=== PATIENT | male | born 1960 | race Caucasian/White ===

== ENCOUNTER 2020-08-23 11:37 | Inpatient (IN) | payer MEDICAID, OTHER ==
[~2020-08-23] VITALS: Ht 177.8 cm; Wt 89.4 kg
[~2020-08-23 11:37] MED LIST: DOCU-275 PO; OMEP20 PO; RISP3TAB63 PO; TRIH2TAB3 PO
[2020-08-23] MEDS ORDERED: LORazepam 2 MG/ML VIAL IM ONE (12:45)
[2020-08-23] MEDS ORDERED: DiphenhydrAMINE HCL 50 MG/ML VIAL IM ONE (12:45)
[2020-08-23] MEDS ORDERED: HALOPERIDOL LACTATE 5 MG/ML VIAL IM ONE (12:45)
[2020-08-23 16:16] LABS: COVID AG,FIA SOURCE NASOPHARYNGEAL
[2020-08-23 16:47] LABS: BASOPHILS % (AUTO) 0.8 % (0.0-2.0); EOSINOPHILS % (AUTO) 1.3 % (1.0-6.0); HEMATOCRIT 43.8 % (41-53); HEMOGLOBIN 14.9 g/dL (13.5-17.5); LYMPHOCYTES # (AUTO) 2.3 K/uL (1.0-4.8); LYMPHOCYTES % (AUTO) 23.2 % (22.0-44.0); MEAN CORPUSCULAR HEMOGLOBIN 35.1 pg (26.0-34.0); MEAN CORPUSCULAR HGB CONC 34.1 G/dL (31.0-37.0); MEAN CORPUSCULAR VOLUME 103 fL (80-100); MONOCYTES % (AUTO) 10.2 % (2.0-9.0); NEUTROPHILS # (AUTO) 6.5 K/uL (1.8-7.7); NEUTROPHILS % (AUTO) 64.5 % (40.0-70.0); PLATELET COUNT (AUTO) 319 K/uL (150-450); RED BLOOD CELL COUNT(AUTO) 4.25 MIL/uL (4.50-5.90); RED CELL DISTRIBUTION WIDTH 13.4 % (11.5-14.5)
[2020-08-23 17:06] LABS: ALANINE AMINOTRANSFERASE 27 U/L (12-78); ALBUMIN 4.5 g/dL (3.4-5.0); ALKALINE PHOSPHATASE 160 U/L (46-116); ANION GAP 12 mmol/L (8-16); ASPARTATE AMINOTRANSFERASE 31 U/L (15-37); BILIRUBIN,TOTAL 0.6 mg/dL (0.1-1.0); CALCIUM, TOTAL 10.1 mg/dL (8.8-10.5); CARBON DIOXIDE 28 mmol/L (22-29); CHLORIDE 102 mmol/L (98-107); CREATININE 1.38 mg/dL (0.60-1.30); GLOMERULAR FILTR. RATE CALC 53 mL/min (>60); GLUCOSE,RANDOM 90 mg/dL (70-110); POTASSIUM 4.4 mmol/L (3.5-5.1); SODIUM SERUM 142 mmol/L (136-145); TOTAL PROTEIN, SERUM 8.5 g/dL (6.4-8.2); UREA NITROGEN, BLOOD 27 mg/dL (7-18)
[2020-08-23] MEDS: OLANZapine 5 MG TABLET PO SCH (20:47)
[2020-08-23] MEDS: HALOPERIDOL LACTATE 5 MG/ML VIAL IM ONE ×2 (22:05→23:12)
[2020-08-23] MEDS: LORazepam 2 MG/ML VIAL IM ONE ×2 (22:06→23:10)
[2020-08-23] MEDS: DiphenhydrAMINE HCL 50 MG/ML VIAL IM ONE ×2 (22:06→23:10)
[2020-08-24 01:47] VITALS: BP 109/68
[2020-08-24] MEDS ORDERED: NICOTINE 14 MG/24 HOUR PATCH TD PRN (07:15)
[2020-08-24] MEDS ORDERED: MAGNESIUM HYDROXIDE SUSPENSION 30 ML UDCUP PO PRN (07:15)
[2020-08-24] MEDS ORDERED: ALBUTEROL SULFATE HFA 90 MCG/PUFF 8 GM INHALER IH PRN (07:15)
[2020-08-24] MEDS ORDERED: DOCUSATE SODIUM 100 MG CAPSULE PO PRN (07:15)
[2020-08-24] MEDS ORDERED: MAG HYDROX/AL HYDROX/SIMETH ES 30 ML SUSPENSION UDCUP PO PRN (07:15)
[2020-08-24] MEDS ORDERED: ACETAMINOPHEN 325 MG TABLET PO PRN (07:15)
[2020-08-24] MEDS ORDERED: ONDANSETRON HCL 4 MG TABLET PO PRN (07:15)
[2020-08-24] MEDS ORDERED: CloNIDine HCL 0.1 MG TABLET PO PRN (07:15)
[2020-08-24] MEDS ORDERED: PETROLATUM,WHITE 28 GM JELLY TP PRN (07:15)
[2020-08-24] MEDS ORDERED: GuaiFENesin/D-METHORPHAN [SUGAR-FREE] 200-20MG/10 ML SYRUP UDCUP PO PRN (07:15)
[2020-08-24] MEDS ORDERED: IBUPROFEN 400 MG TABLET PO PRN (07:15)
[2020-08-24] MEDS ORDERED: LOPERAMIDE HCL 2 MG CAPSULE PO PRN (07:15)
[2020-08-24] MEDS: OMEPRAZOLE 20 MG CAPSULE PO SCH (09:00)
[2020-08-24] MEDS: OLANZapine 5 MG TABLET PO SCH (09:00)
[2020-08-24 10:12] VITALS: BP 101/60
[2020-08-24] MEDS: OLANZapine 5 MG RAPDIS TABLET PO SCH ×2 (11:30→16:47)
[2020-08-24 16:18] VITALS: BP 131/79
[2020-08-24] MEDS: ZOLPIDEM TARTRATE 10 MG TABLET PO PRN (22:23)
[2020-08-25 08:45] VITALS: BP 122/63
[2020-08-25] MEDS: OMEPRAZOLE 20 MG CAPSULE PO SCH (09:49)
[2020-08-25] MEDS: OLANZapine 5 MG RAPDIS TABLET PO SCH (09:49)
[2020-08-25] MEDS: LORazepam 2 MG TABLET PO PRN ×2 (09:50→17:27)
[2020-08-25] MEDS: HALOPERIDOL 5 MG TABLET PO PRN (10:51)
[2020-08-25] MEDS ORDERED: OLANZapine 5 MG RAPDIS TABLET PO ONE (11:15)
[2020-08-25 16:19] VITALS: BP 130/79
[2020-08-25] MEDS: OLANZapine 10 MG RAPDIS TABLET PO SCH (17:27)
[2020-08-26] MEDS: LORazepam 2 MG TABLET PO PRN ×2 (01:19→08:46)
[2020-08-26] MEDS: ZOLPIDEM TARTRATE 10 MG TABLET PO PRN (01:19)
[2020-08-26] MEDS: OMEPRAZOLE 20 MG CAPSULE PO SCH (08:46)
[2020-08-26] MEDS: OLANZapine 10 MG RAPDIS TABLET PO SCH ×2 (08:46→17:00)
[2020-08-26 09:13] VITALS: BP 100/73
[2020-08-26] MEDS: MULTIVITAMINS WITH MINERALS, THERAPEUTIC TABLET PO SCH ×2 (11:30→12:49)
[2020-08-26] MEDS ORDERED: ChlordiazePOXIDE HCL 25 MG CAPSULE PO PRN (11:30)
[2020-08-26] MEDS: THIAMINE 100 MG TABLET PO SCH ×2 (11:30→12:49)
[2020-08-26] MEDS: FOLIC ACID 1 MG TABLET PO SCH ×2 (11:30→12:49)
[2020-08-26 11:32] VITALS: BP 116/66
[2020-08-26 13:00] VITALS: BP 94/58
[2020-08-26 15:00] VITALS: BP 116/66
[2020-08-27 06:09] VITALS: BP 113/61
[2020-08-27] MEDS ORDERED: ChlordiazePOXIDE HCL 25 MG CAPSULE PO PRN (07:00)
[2020-08-27 08:51] LABS: CHOL/HDL RATIO 5.3 (4.2-7.3)
[2020-08-27] MEDS: ChlordiazePOXIDE HCL 25 MG CAPSULE PO SCH ×4 (09:42→20:12)
[2020-08-27] MEDS: FOLIC ACID 1 MG TABLET PO SCH ×2 (09:42→16:45)
[2020-08-27] MEDS: OMEPRAZOLE 20 MG CAPSULE PO SCH (09:42)
[2020-08-27] MEDS: THIAMINE 100 MG TABLET PO SCH ×2 (09:42→16:45)
[2020-08-27] MEDS: MULTIVITAMINS WITH MINERALS, THERAPEUTIC TABLET PO SCH (09:43)
[2020-08-27] MEDS: OLANZapine 10 MG RAPDIS TABLET PO SCH ×2 (09:43→16:45)
[2020-08-27] MEDS: HALOPERIDOL 5 MG TABLET PO PRN (16:45)
[2020-08-27 17:16] VITALS: BP 125/72
[2020-08-27] MEDS: LORazepam 2 MG TABLET PO PRN (20:12)
[2020-08-28 06:48] VITALS: BP 115/69
[2020-08-28] MEDS: MULTIVITAMINS WITH MINERALS, THERAPEUTIC TABLET PO SCH (08:47)
[2020-08-28] MEDS: OLANZapine 10 MG RAPDIS TABLET PO SCH ×2 (08:47→16:27)
[2020-08-28] MEDS: ChlordiazePOXIDE HCL 25 MG CAPSULE PO SCH ×4 (08:47→20:25)
[2020-08-28] MEDS: FOLIC ACID 1 MG TABLET PO SCH ×2 (08:47→16:27)
[2020-08-28] MEDS: THIAMINE 100 MG TABLET PO SCH ×2 (08:47→16:27)
[2020-08-28] MEDS: OMEPRAZOLE 20 MG CAPSULE PO SCH (08:47)
[2020-08-28] MEDS: LORazepam 2 MG TABLET PO PRN (08:47)
[2020-08-28 16:23] VITALS: BP 123/60
[2020-08-28] MEDS: HALOPERIDOL 5 MG TABLET PO PRN (16:27)
[2020-08-28] MEDS: ZOLPIDEM TARTRATE 10 MG TABLET PO PRN (20:25)
[2020-08-29 03:49] VITALS: BP 139/79
[2020-08-29] MEDS: LORazepam 2 MG TABLET PO PRN (03:55)
[2020-08-29] MEDS: HALOPERIDOL 5 MG TABLET PO PRN (03:55)
[2020-08-29 05:12] VITALS: BP 139/79
[2020-08-29] MEDS ORDERED: ChlordiazePOXIDE HCL 10 MG CAPSULE PO PRN (07:00)
[2020-08-29] MEDS: MULTIVITAMINS WITH MINERALS, THERAPEUTIC TABLET PO SCH (08:13)
[2020-08-29] MEDS: OMEPRAZOLE 20 MG CAPSULE PO SCH (08:13)
[2020-08-29] MEDS: THIAMINE 100 MG TABLET PO SCH ×2 (08:13→17:07)
[2020-08-29] MEDS: OLANZapine 10 MG RAPDIS TABLET PO SCH ×2 (08:13→17:07)
[2020-08-29] MEDS: FOLIC ACID 1 MG TABLET PO SCH ×2 (08:14→17:07)
[2020-08-29] MEDS: ChlordiazePOXIDE HCL 10 MG CAPSULE PO SCH ×4 (08:25→21:29)
[2020-08-29 11:00] VITALS: BP 108/68
[2020-08-29 17:41] VITALS: BP 108/64
[2020-08-29 18:52] VITALS: BP 108/64
[2020-08-30] VITALS (8 sets, daily range): BP systolic 108–128; BP diastolic 68–73
[2020-08-30] MEDS: ZOLPIDEM TARTRATE 10 MG TABLET PO PRN (01:20)
[2020-08-30] MEDS ORDERED: ChlordiazePOXIDE HCL 10 MG CAPSULE PO PRN (07:00)
[2020-08-30] MEDS: OLANZapine 10 MG RAPDIS TABLET PO SCH ×2 (08:37→16:29)
[2020-08-30] MEDS: MULTIVITAMINS WITH MINERALS, THERAPEUTIC TABLET PO SCH (08:37)
[2020-08-30] MEDS: THIAMINE 100 MG TABLET PO SCH ×2 (08:37→16:29)
[2020-08-30] MEDS: OMEPRAZOLE 20 MG CAPSULE PO SCH (08:37)
[2020-08-30] MEDS: FOLIC ACID 1 MG TABLET PO SCH ×2 (08:37→16:29)
[2020-08-31 06:45] VITALS: BP 122/71
[2020-08-31] MEDS: MULTIVITAMINS WITH MINERALS, THERAPEUTIC TABLET PO SCH (08:35)
[2020-08-31] MEDS: FOLIC ACID 1 MG TABLET PO SCH ×2 (08:36→16:05)
[2020-08-31] MEDS: OLANZapine 10 MG RAPDIS TABLET PO SCH ×2 (08:36→16:05)
[2020-08-31] MEDS: OMEPRAZOLE 20 MG CAPSULE PO SCH (08:36)
[2020-08-31] MEDS: THIAMINE 100 MG TABLET PO SCH ×2 (08:36→16:05)
[2020-08-31] MEDS: LORazepam 2 MG TABLET PO PRN (16:06)
[2020-09-01 08:05] VITALS: BP 118/58
[2020-09-01] MEDS: FOLIC ACID 1 MG TABLET PO SCH ×2 (08:45→16:52)
[2020-09-01] MEDS: THIAMINE 100 MG TABLET PO SCH ×2 (08:46→16:52)
[2020-09-01] MEDS: MULTIVITAMINS WITH MINERALS, THERAPEUTIC TABLET PO SCH (08:46)
[2020-09-01] MEDS: OMEPRAZOLE 20 MG CAPSULE PO SCH (08:46)
[2020-09-01] MEDS: OLANZapine 10 MG RAPDIS TABLET PO SCH ×2 (08:47→16:53)
[2020-09-01 13:30] VITALS: BP 98/65
[2020-09-01 16:04] VITALS: BP 127/88
[2020-09-01 16:05] VITALS: BP 127/88
[2020-09-01] MEDS: LORazepam 2 MG TABLET PO PRN (17:03)
[2020-09-01] MEDS: HALOPERIDOL 5 MG TABLET PO PRN (17:03)
[2020-09-01] MEDS: ZOLPIDEM TARTRATE 10 MG TABLET PO PRN (20:33)
[2020-09-02 06:24] VITALS: BP 110/63
[2020-09-02 08:50] VITALS: BP 133/65
[2020-09-02] MEDS: OLANZapine 10 MG RAPDIS TABLET PO SCH ×2 (08:53→16:49)
[2020-09-02] MEDS: OMEPRAZOLE 20 MG CAPSULE PO SCH (08:53)
[2020-09-02] MEDS: FOLIC ACID 1 MG TABLET PO SCH ×2 (08:53→16:49)
[2020-09-02] MEDS: THIAMINE 100 MG TABLET PO SCH ×2 (08:53→16:49)
[2020-09-02] MEDS: MULTIVITAMINS WITH MINERALS, THERAPEUTIC TABLET PO SCH (09:00)
[2020-09-02 16:37] VITALS: BP 126/62
[2020-09-02] MEDS: LORazepam 2 MG TABLET PO PRN (16:49)
[2020-09-02] MEDS: ZOLPIDEM TARTRATE 10 MG TABLET PO PRN (22:14)
[2020-09-03 06:11] VITALS: BP 132/64
[2020-09-03 08:28] VITALS: BP 130/71
[2020-09-03] MEDS: OLANZapine 10 MG RAPDIS TABLET PO SCH ×2 (09:09→16:24)
[2020-09-03] MEDS: MULTIVITAMINS WITH MINERALS, THERAPEUTIC TABLET PO SCH (09:09)
[2020-09-03] MEDS: FOLIC ACID 1 MG TABLET PO SCH ×2 (09:09→16:23)
[2020-09-03] MEDS: THIAMINE 100 MG TABLET PO SCH ×2 (09:09→16:24)
[2020-09-03] MEDS: OMEPRAZOLE 20 MG CAPSULE PO SCH (09:09)
[2020-09-03 16:13] VITALS: BP 119/76
[2020-09-03] MEDS: ZOLPIDEM TARTRATE 10 MG TABLET PO PRN (22:03)
[2020-09-04] MEDS: MULTIVITAMINS WITH MINERALS, THERAPEUTIC TABLET PO SCH (08:15)
[2020-09-04] MEDS: FOLIC ACID 1 MG TABLET PO SCH ×2 (08:15→16:49)
[2020-09-04] MEDS: THIAMINE 100 MG TABLET PO SCH ×2 (08:15→16:49)
[2020-09-04] MEDS: OLANZapine 10 MG RAPDIS TABLET PO SCH ×2 (08:16→16:49)
[2020-09-04] MEDS: OMEPRAZOLE 20 MG CAPSULE PO SCH (08:16)
[2020-09-04 16:15] VITALS: BP 130/91
[2020-09-04] MEDS: HALOPERIDOL 5 MG TABLET PO PRN (16:49)
[2020-09-04] MEDS: LORazepam 2 MG TABLET PO PRN (16:49)
[2020-09-04] MEDS: ZOLPIDEM TARTRATE 10 MG TABLET PO PRN (20:54)
[2020-09-05 06:35] VITALS: BP 110/64
[2020-09-05 08:20] VITALS: BP 102/61
[2020-09-05] MEDS: THIAMINE 100 MG TABLET PO SCH ×2 (09:48→16:33)
[2020-09-05] MEDS: FOLIC ACID 1 MG TABLET PO SCH ×2 (09:48→16:32)
[2020-09-05] MEDS: OLANZapine 10 MG RAPDIS TABLET PO SCH ×2 (09:48→16:33)
[2020-09-05] MEDS: OMEPRAZOLE 20 MG CAPSULE PO SCH (09:48)
[2020-09-05] MEDS: MULTIVITAMINS WITH MINERALS, THERAPEUTIC TABLET PO SCH (09:48)
[2020-09-05 17:25] VITALS: BP 112/69
[2020-09-05] MEDS: LORazepam 2 MG TABLET PO PRN (17:36)
[2020-09-05] MEDS: HALOPERIDOL 5 MG TABLET PO PRN (19:10)
[2020-09-05] MEDS: ZOLPIDEM TARTRATE 10 MG TABLET PO PRN (21:15)
[2020-09-06 06:06] VITALS: BP 114/67
[2020-09-06 08:20] VITALS: BP 132/90
[2020-09-06] MEDS: OMEPRAZOLE 20 MG CAPSULE PO SCH (08:48)
[2020-09-06] MEDS: OLANZapine 10 MG RAPDIS TABLET PO SCH ×2 (08:48→18:00)
[2020-09-06] MEDS: FOLIC ACID 1 MG TABLET PO SCH ×2 (08:48→18:00)
[2020-09-06] MEDS: THIAMINE 100 MG TABLET PO SCH ×2 (08:49→18:00)
[2020-09-06] MEDS: MULTIVITAMINS WITH MINERALS, THERAPEUTIC TABLET PO SCH (08:49)
[2020-09-06 16:03] VITALS: BP 104/48
[2020-09-07 05:12] VITALS: BP 118/64
[2020-09-07 08:36] VITALS: BP 106/64
[2020-09-07] MEDS: THIAMINE 100 MG TABLET PO SCH ×2 (08:50→17:22)
[2020-09-07] MEDS: OLANZapine 10 MG RAPDIS TABLET PO SCH ×2 (08:50→17:25)
[2020-09-07] MEDS: OMEPRAZOLE 20 MG CAPSULE PO SCH (08:50)
[2020-09-07] MEDS: MULTIVITAMINS WITH MINERALS, THERAPEUTIC TABLET PO SCH (08:50)
[2020-09-07] MEDS: FOLIC ACID 1 MG TABLET PO SCH ×2 (08:51→17:23)
[2020-09-07] MEDS: LORazepam 2 MG TABLET PO PRN ×3 (08:51→22:32)
[2020-09-07 16:11] VITALS: BP_SYST 134; BP_DIAS 93; BP_DIAS 99
[2020-09-07] MEDS: HALOPERIDOL 5 MG TABLET PO PRN (22:32)
[2020-09-08 06:28] VITALS: BP 128/78
[2020-09-08 08:27] VITALS: BP 108/62
[2020-09-08] MEDS: FOLIC ACID 1 MG TABLET PO SCH ×2 (09:12→16:20)
[2020-09-08] MEDS: MULTIVITAMINS WITH MINERALS, THERAPEUTIC TABLET PO SCH (09:12)
[2020-09-08] MEDS: OLANZapine 10 MG RAPDIS TABLET PO SCH ×2 (09:12→16:20)
[2020-09-08] MEDS: OMEPRAZOLE 20 MG CAPSULE PO SCH (09:12)
[2020-09-08] MEDS: THIAMINE 100 MG TABLET PO SCH ×2 (09:12→16:20)
[2020-09-08 16:04] VITALS: BP 129/88
[2020-09-08] MEDS: LORazepam 2 MG TABLET PO PRN (16:23)
[2020-09-08] MEDS: ZOLPIDEM TARTRATE 10 MG TABLET PO PRN (22:12)
[2020-09-09 04:43] VITALS: BP 126/78
[2020-09-09] MEDS: THIAMINE 100 MG TABLET PO SCH ×2 (08:33→17:20)
[2020-09-09] MEDS: FOLIC ACID 1 MG TABLET PO SCH ×2 (08:33→17:20)
[2020-09-09] MEDS: OLANZapine 10 MG RAPDIS TABLET PO SCH ×2 (08:33→17:20)
[2020-09-09] MEDS: MULTIVITAMINS WITH MINERALS, THERAPEUTIC TABLET PO SCH (08:33)
[2020-09-09] MEDS: OMEPRAZOLE 20 MG CAPSULE PO SCH (08:33)
[2020-09-09 08:45] VITALS: BP 128/71
[2020-09-09] MEDS: GABAPENTIN 100 MG CAPSULE PO SCH ×2 (10:09→17:20)
[2020-09-09] MEDS: LORazepam 2 MG TABLET PO PRN ×2 (13:41→20:36)
[2020-09-09 13:45] VITALS: BP 138/89
[2020-09-09 16:28] VITALS: BP 112/72
[2020-09-09] MEDS: HALOPERIDOL 5 MG TABLET PO PRN (17:20)
[2020-09-10 05:31] VITALS: BP 125/64
[2020-09-10 07:57] VITALS: BP 139/89
[2020-09-10] MEDS: FOLIC ACID 1 MG TABLET PO SCH ×2 (08:18→16:16)
[2020-09-10] MEDS: OMEPRAZOLE 20 MG CAPSULE PO SCH (08:18)
[2020-09-10] MEDS: GABAPENTIN 100 MG CAPSULE PO SCH ×2 (08:18→16:16)
[2020-09-10] MEDS: HALOPERIDOL 5 MG TABLET PO PRN (08:18)
[2020-09-10] MEDS: THIAMINE 100 MG TABLET PO SCH ×2 (08:18→16:16)
[2020-09-10] MEDS: MULTIVITAMINS WITH MINERALS, THERAPEUTIC TABLET PO SCH (08:18)
[2020-09-10] MEDS: OLANZapine 10 MG RAPDIS TABLET PO SCH ×2 (08:18→16:16)
[2020-09-10] MEDS: LORazepam 2 MG TABLET PO PRN (13:29)
[2020-09-10 16:10] VITALS: BP 121/53
[2020-09-11 03:23] VITALS: BP 152/98
[2020-09-11] MEDS: LORazepam 2 MG TABLET PO PRN ×3 (03:37→18:01)
[2020-09-11 08:43] LABS: EOSINOPHILS % (AUTO) 3.7 % (1.0-6.0); HEMATOCRIT 37.5 % (41-53); HEMOGLOBIN 12.7 g/dL (13.5-17.5); LYMPHOCYTES # (AUTO) 1.9 K/uL (1.0-4.8); LYMPHOCYTES % (AUTO) 27.4 % (22.0-44.0); MEAN CORPUSCULAR HEMOGLOBIN 34.9 pg (26.0-34.0); MEAN CORPUSCULAR HGB CONC 33.9 G/dL (31.0-37.0); MEAN CORPUSCULAR VOLUME 103 fL (80-100); MONOCYTES # (AUTO) 0.7 K/uL (0.1-1.0); NEUTROPHILS # (AUTO) 3.9 K/uL (1.8-7.7); NEUTROPHILS % (AUTO) 56.9 % (40.0-70.0); PLATELET COUNT (AUTO) 348 K/uL (150-450); RED BLOOD CELL COUNT(AUTO) 3.64 MIL/uL (4.50-5.90); RED CELL DISTRIBUTION WIDTH 13.3 % (11.5-14.5)
[2020-09-11] MEDS: FOLIC ACID 1 MG TABLET PO SCH ×2 (08:55→18:01)
[2020-09-11] MEDS: OLANZapine 10 MG RAPDIS TABLET PO SCH ×2 (08:55→18:01)
[2020-09-11] MEDS: MULTIVITAMINS WITH MINERALS, THERAPEUTIC TABLET PO SCH (08:55)
[2020-09-11] MEDS: THIAMINE 100 MG TABLET PO SCH ×2 (08:55→18:01)
[2020-09-11] MEDS: OMEPRAZOLE 20 MG CAPSULE PO SCH (08:55)
[2020-09-11] MEDS: GABAPENTIN 100 MG CAPSULE PO SCH ×2 (08:55→18:01)
[2020-09-11 09:18] LABS: ALANINE AMINOTRANSFERASE 38 U/L (12-78); ALBUMIN 3.4 g/dL (3.4-5.0); ALKALINE PHOSPHATASE 129 U/L (46-116); ANION GAP 8 mmol/L (8-16); ASPARTATE AMINOTRANSFERASE 32 U/L (15-37); BILIRUBIN,TOTAL 0.4 mg/dL (0.1-1.0); CALCIUM, TOTAL 8.9 mg/dL (8.8-10.5); CARBON DIOXIDE 28 mmol/L (22-29); CHLORIDE 108 mmol/L (98-107); CREATININE 0.92 mg/dL (0.60-1.30); GLOMERULAR FILTR. RATE CALC > 60 mL/min (>60); GLUCOSE,RANDOM 89 mg/dL (70-110); SODIUM SERUM 144 mmol/L (136-145); TOTAL PROTEIN, SERUM 6.8 g/dL (6.4-8.2); UREA NITROGEN, BLOOD 29 mg/dL (7-18)
[2020-09-11 16:08] VITALS: BP 109/79
[2020-09-11 20:15] VITALS: BP 152/81
[2020-09-11] MEDS: HALOPERIDOL 5 MG TABLET PO PRN (20:57)
[2020-09-12] MEDS: HALOPERIDOL 5 MG TABLET PO PRN ×3 (09:12→20:09)
[2020-09-12] MEDS: GABAPENTIN 100 MG CAPSULE PO SCH ×2 (09:12→16:08)
[2020-09-12] MEDS: LORazepam 2 MG TABLET PO PRN (09:13)
[2020-09-12] MEDS: FOLIC ACID 1 MG TABLET PO SCH ×2 (09:13→16:08)
[2020-09-12] MEDS: OLANZapine 10 MG RAPDIS TABLET PO SCH ×2 (09:14→16:08)
[2020-09-12] MEDS: OMEPRAZOLE 20 MG CAPSULE PO SCH (09:14)
[2020-09-12] MEDS: MULTIVITAMINS WITH MINERALS, THERAPEUTIC TABLET PO SCH (09:15)
[2020-09-12] MEDS: THIAMINE 100 MG TABLET PO SCH ×2 (09:15→16:08)
[2020-09-12 14:59] LABS: APPEARANCE,URINE CLEAR (CLEAR); BILIRUBIN,URINE NEGATIVE (NEGATIVE); GLUCOSE, URINE (UA) NEGATIVE (NEGATIVE); KETONES,URINE NEGATIVE (NEGATIVE); LEUKOCYTE ESTERASE ,URINE NEGATIVE (NEGATIVE); NITRATE,URINE NEGATIVE (NEGATIVE); OCCULT BLOOD,URINE NEGATIVE (NEGATIVE); PROTEIN,URINE NEGATIVE (NEGATIVE); UROBILINOGEN,URINE 0.2 mg/dL (<=1.0)
[2020-09-12 15:00] LABS: BACTERIA,URINE None Seen /HPF (None Seen); RBC,URINE None Seen /HPF (0-2); WBC,URINE None Seen /HPF (0-5)
[2020-09-12 16:23] VITALS: BP 149/73
[2020-09-13] MEDS: HALOPERIDOL 5 MG TABLET PO PRN ×4 (01:47→17:40)
[2020-09-13] MEDS: LORazepam 2 MG TABLET PO PRN ×2 (01:47→09:36)
[2020-09-13 02:04] VITALS: BP 152/77
[2020-09-13] MEDS: MULTIVITAMINS WITH MINERALS, THERAPEUTIC TABLET PO SCH (09:36)
[2020-09-13] MEDS: THIAMINE 100 MG TABLET PO SCH ×2 (09:36→16:32)
[2020-09-13] MEDS: GABAPENTIN 100 MG CAPSULE PO SCH ×2 (09:36→16:32)
[2020-09-13] MEDS: OLANZapine 10 MG RAPDIS TABLET PO SCH ×2 (09:36→16:32)
[2020-09-13] MEDS: FOLIC ACID 1 MG TABLET PO SCH ×2 (09:36→16:32)
[2020-09-13] MEDS: OMEPRAZOLE 20 MG CAPSULE PO SCH (09:36)
[2020-09-13 16:01] VITALS: BP 128/67
[2020-09-14 08:19] VITALS: BP 127/67
[2020-09-14] MEDS: LORazepam 2 MG TABLET PO PRN (09:06)
[2020-09-14] MEDS: GABAPENTIN 100 MG CAPSULE PO SCH ×2 (09:06→16:29)
[2020-09-14] MEDS: THIAMINE 100 MG TABLET PO SCH ×2 (09:06→16:29)
[2020-09-14] MEDS: OLANZapine 10 MG RAPDIS TABLET PO SCH ×2 (09:06→16:29)
[2020-09-14] MEDS: OMEPRAZOLE 20 MG CAPSULE PO SCH (09:06)
[2020-09-14] MEDS: FOLIC ACID 1 MG TABLET PO SCH ×2 (09:06→16:29)
[2020-09-14] MEDS: MULTIVITAMINS WITH MINERALS, THERAPEUTIC TABLET PO SCH (09:06)
[2020-09-14 12:51] LABS: COVID AG,FIA SOURCE NASOPHARYNGEAL
[2020-09-14 16:01] VITALS: BP 129/87
[2020-09-15 08:00] VITALS: BP 122/77
[2020-09-15] MEDS: GABAPENTIN 100 MG CAPSULE PO SCH ×2 (08:05→16:30)
[2020-09-15] MEDS: MULTIVITAMINS WITH MINERALS, THERAPEUTIC TABLET PO SCH (08:05)
[2020-09-15] MEDS: THIAMINE 100 MG TABLET PO SCH ×2 (08:05→16:31)
[2020-09-15] MEDS: OMEPRAZOLE 20 MG CAPSULE PO SCH (08:05)
[2020-09-15] MEDS: OLANZapine 10 MG RAPDIS TABLET PO SCH ×2 (08:05→16:31)
[2020-09-15] MEDS: LORazepam 2 MG TABLET PO PRN (08:05)
[2020-09-15] MEDS: FOLIC ACID 1 MG TABLET PO SCH ×2 (08:05→16:31)
[2020-09-15 16:13] VITALS: BP 124/81
[2020-09-15] MEDS: ZOLPIDEM TARTRATE 10 MG TABLET PO PRN (21:00)
[2020-09-16] MEDS: THIAMINE 100 MG TABLET PO SCH ×2 (07:56→16:23)
[2020-09-16] MEDS: OMEPRAZOLE 20 MG CAPSULE PO SCH (07:56)
[2020-09-16] MEDS: FOLIC ACID 1 MG TABLET PO SCH ×2 (07:56→16:24)
[2020-09-16] MEDS: MULTIVITAMINS WITH MINERALS, THERAPEUTIC TABLET PO SCH (07:57)
[2020-09-16] MEDS: HALOPERIDOL 5 MG TABLET PO PRN ×2 (07:57→18:36)
[2020-09-16] MEDS: GABAPENTIN 100 MG CAPSULE PO SCH ×2 (07:57→16:24)
[2020-09-16] MEDS: OLANZapine 10 MG RAPDIS TABLET PO SCH ×2 (07:57→16:24)
[2020-09-16 08:07] VITALS: BP 131/77
[2020-09-16 16:24] VITALS: BP 138/83
[2020-09-17 08:07] VITALS: BP 151/95
[2020-09-17] MEDS: THIAMINE 100 MG TABLET PO SCH ×2 (10:12→16:44)
[2020-09-17] MEDS: GABAPENTIN 100 MG CAPSULE PO SCH ×2 (10:12→16:44)
[2020-09-17] MEDS: FOLIC ACID 1 MG TABLET PO SCH ×2 (10:12→16:43)
[2020-09-17] MEDS: HALOPERIDOL 5 MG TABLET PO PRN ×2 (10:12→16:44)
[2020-09-17] MEDS: OLANZapine 10 MG RAPDIS TABLET PO SCH ×2 (10:12→16:44)
[2020-09-17] MEDS: OMEPRAZOLE 20 MG CAPSULE PO SCH (10:12)
[2020-09-17] MEDS: MULTIVITAMINS WITH MINERALS, THERAPEUTIC TABLET PO SCH (10:12)
[2020-09-17] MEDS: FERROUS SULFATE 325 MG EC TABLET PO SCH (16:44)
[2020-09-17 17:59] VITALS: BP 148/80
[2020-09-18] MEDS: FERROUS SULFATE 325 MG EC TABLET PO SCH ×2 (06:55→16:10)
[2020-09-18 09:13] VITALS: BP 153/96
[2020-09-18] MEDS: THIAMINE 100 MG TABLET PO SCH ×2 (09:32→16:03)
[2020-09-18] MEDS: HALOPERIDOL 5 MG TABLET PO PRN ×2 (09:33→16:04)
[2020-09-18] MEDS: MULTIVITAMINS WITH MINERALS, THERAPEUTIC TABLET PO SCH (09:33)
[2020-09-18] MEDS: OMEPRAZOLE 20 MG CAPSULE PO SCH (09:33)
[2020-09-18] MEDS: GABAPENTIN 100 MG CAPSULE PO SCH ×2 (09:33→16:03)
[2020-09-18] MEDS: FOLIC ACID 1 MG TABLET PO SCH ×2 (09:33→16:03)
[2020-09-18] MEDS: OLANZapine 10 MG RAPDIS TABLET PO SCH ×2 (09:33→16:04)
[2020-09-18 16:19] VITALS: BP 100/74
[2020-09-19] MEDS: FERROUS SULFATE 325 MG EC TABLET PO SCH ×2 (06:54→18:41)
[2020-09-19] MEDS: MULTIVITAMINS WITH MINERALS, THERAPEUTIC TABLET PO SCH (08:09)
[2020-09-19] MEDS: GABAPENTIN 100 MG CAPSULE PO SCH ×2 (08:09→16:05)
[2020-09-19] MEDS: THIAMINE 100 MG TABLET PO SCH ×2 (08:09→16:06)
[2020-09-19] MEDS: HALOPERIDOL 5 MG TABLET PO PRN ×3 (08:09→20:12)
[2020-09-19] MEDS: OMEPRAZOLE 20 MG CAPSULE PO SCH (08:09)
[2020-09-19] MEDS: OLANZapine 10 MG RAPDIS TABLET PO SCH ×2 (08:09→16:06)
[2020-09-19] MEDS: FOLIC ACID 1 MG TABLET PO SCH ×2 (08:09→16:05)
[2020-09-19 16:37] VITALS: BP 141/110
[2020-09-20] MEDS: FERROUS SULFATE 325 MG EC TABLET PO SCH ×2 (06:59→16:47)
[2020-09-20 08:27] VITALS: BP 153/72
[2020-09-20] MEDS: THIAMINE 100 MG TABLET PO SCH ×2 (08:56→16:47)
[2020-09-20] MEDS: MULTIVITAMINS WITH MINERALS, THERAPEUTIC TABLET PO SCH (08:56)
[2020-09-20] MEDS: OLANZapine 10 MG RAPDIS TABLET PO SCH ×2 (08:56→16:48)
[2020-09-20] MEDS: FOLIC ACID 1 MG TABLET PO SCH ×2 (08:57→16:48)
[2020-09-20] MEDS: OMEPRAZOLE 20 MG CAPSULE PO SCH (08:57)
[2020-09-20] MEDS: HALOPERIDOL 5 MG TABLET PO PRN ×2 (08:57→16:47)
[2020-09-20] MEDS: GABAPENTIN 100 MG CAPSULE PO SCH ×2 (08:57→16:47)
[2020-09-21 00:15] VITALS: BP 156/100
[2020-09-21] MEDS: LORazepam 2 MG TABLET PO PRN (00:18)
[2020-09-21] MEDS: ZOLPIDEM TARTRATE 10 MG TABLET PO PRN ×2 (00:18→20:58)
[2020-09-21] MEDS: FERROUS SULFATE 325 MG EC TABLET PO SCH ×2 (06:59→17:45)
[2020-09-21 08:03] VITALS: BP 116/84
[2020-09-21] MEDS: MULTIVITAMINS WITH MINERALS, THERAPEUTIC TABLET PO SCH (08:51)
[2020-09-21] MEDS: FOLIC ACID 1 MG TABLET PO SCH ×2 (08:51→17:46)
[2020-09-21] MEDS: HALOPERIDOL 5 MG TABLET PO PRN ×3 (08:51→20:16)
[2020-09-21] MEDS: GABAPENTIN 100 MG CAPSULE PO SCH ×2 (08:51→17:46)
[2020-09-21] MEDS: OLANZapine 10 MG RAPDIS TABLET PO SCH ×2 (08:51→17:45)
[2020-09-21] MEDS: THIAMINE 100 MG TABLET PO SCH ×2 (08:51→17:46)
[2020-09-21] MEDS: OMEPRAZOLE 20 MG CAPSULE PO SCH (08:51)
[2020-09-21 13:43] LABS: COVID AG,FIA SOURCE NASOPHARYNGEAL
[2020-09-21 16:06] VITALS: BP 124/76
[2020-09-22] MEDS: FERROUS SULFATE 325 MG EC TABLET PO SCH ×2 (06:25→17:44)
[2020-09-22] MEDS: GABAPENTIN 100 MG CAPSULE PO SCH ×2 (08:57→16:16)
[2020-09-22] MEDS: HALOPERIDOL 5 MG TABLET PO PRN ×3 (08:57→19:45)
[2020-09-22] MEDS: MULTIVITAMINS WITH MINERALS, THERAPEUTIC TABLET PO SCH (08:57)
[2020-09-22] MEDS: FOLIC ACID 1 MG TABLET PO SCH ×2 (08:57→16:16)
[2020-09-22] MEDS: THIAMINE 100 MG TABLET PO SCH ×2 (08:57→16:16)
[2020-09-22] MEDS: OMEPRAZOLE 20 MG CAPSULE PO SCH (08:57)
[2020-09-22] MEDS: OLANZapine 10 MG RAPDIS TABLET PO SCH ×2 (08:57→16:16)
[2020-09-22 16:08] VITALS: BP 131/79
[2020-09-22] MEDS: ZOLPIDEM TARTRATE 10 MG TABLET PO PRN (21:36)
[2020-09-23] MEDS: FERROUS SULFATE 325 MG EC TABLET PO SCH ×2 (06:39→15:50)
[2020-09-23] MEDS: OMEPRAZOLE 20 MG CAPSULE PO SCH (08:05)
[2020-09-23] MEDS: OLANZapine 10 MG RAPDIS TABLET PO SCH ×2 (08:05→15:48)
[2020-09-23] MEDS: MULTIVITAMINS WITH MINERALS, THERAPEUTIC TABLET PO SCH (08:05)
[2020-09-23] MEDS: GABAPENTIN 100 MG CAPSULE PO SCH ×2 (08:05→15:48)
[2020-09-23] MEDS: THIAMINE 100 MG TABLET PO SCH ×2 (08:05→15:48)
[2020-09-23] MEDS: FOLIC ACID 1 MG TABLET PO SCH ×2 (08:05→15:48)
[2020-09-23 08:48] VITALS: BP 146/96
[2020-09-23] MEDS: HALOPERIDOL 5 MG TABLET PO PRN (15:48)
[2020-09-23 16:07] VITALS: BP 131/81
[2020-09-23] MEDS: BACITRACIN 28 GM OINTMENT TP SCH (16:07)
[2020-09-24] MEDS: FERROUS SULFATE 325 MG EC TABLET PO SCH ×2 (06:56→16:00)
[2020-09-24] MEDS: GABAPENTIN 100 MG CAPSULE PO SCH ×2 (09:03→16:00)
[2020-09-24] MEDS: HALOPERIDOL 5 MG TABLET PO PRN ×2 (09:03→15:57)
[2020-09-24] MEDS: OMEPRAZOLE 20 MG CAPSULE PO SCH (09:04)
[2020-09-24] MEDS: FOLIC ACID 1 MG TABLET PO SCH ×2 (09:04→16:00)
[2020-09-24] MEDS: OLANZapine 10 MG RAPDIS TABLET PO SCH ×2 (09:04→16:00)
[2020-09-24] MEDS: THIAMINE 100 MG TABLET PO SCH ×2 (09:04→16:01)
[2020-09-24] MEDS: MULTIVITAMINS WITH MINERALS, THERAPEUTIC TABLET PO SCH (09:05)
[2020-09-24] MEDS: BACITRACIN 28 GM OINTMENT TP SCH ×2 (09:05→16:01)
[2020-09-24 10:15] VITALS: BP 129/76
[2020-09-24] MEDS: ZOLPIDEM TARTRATE 10 MG TABLET PO PRN (21:17)
[2020-09-25 04:12] VITALS: BP 120/59
[2020-09-25] MEDS: FERROUS SULFATE 325 MG EC TABLET PO SCH ×2 (06:28→17:01)
[2020-09-25] MEDS: GABAPENTIN 100 MG CAPSULE PO SCH ×2 (07:42→16:24)
[2020-09-25] MEDS: BACITRACIN 28 GM OINTMENT TP SCH ×2 (07:42→16:24)
[2020-09-25] MEDS: OMEPRAZOLE 20 MG CAPSULE PO SCH (07:42)
[2020-09-25] MEDS: MULTIVITAMINS WITH MINERALS, THERAPEUTIC TABLET PO SCH (07:42)
[2020-09-25] MEDS: OLANZapine 10 MG RAPDIS TABLET PO SCH ×2 (07:42→16:24)
[2020-09-25] MEDS: THIAMINE 100 MG TABLET PO SCH ×2 (07:42→16:24)
[2020-09-25] MEDS: HALOPERIDOL 5 MG TABLET PO PRN ×2 (07:42→21:19)
[2020-09-25] MEDS: FOLIC ACID 1 MG TABLET PO SCH ×2 (07:42→16:24)
[2020-09-25 16:16] VITALS: BP 138/103
[2020-09-26] MEDS: LORazepam 2 MG TABLET PO PRN (04:22)
[2020-09-26] MEDS: HALOPERIDOL 5 MG TABLET PO PRN ×3 (04:22→20:21)
[2020-09-26] MEDS: FERROUS SULFATE 325 MG EC TABLET PO SCH ×2 (07:00→17:07)
[2020-09-26 09:58] VITALS: BP 121/65
[2020-09-26] MEDS: MULTIVITAMINS WITH MINERALS, THERAPEUTIC TABLET PO SCH (10:06)
[2020-09-26] MEDS: OMEPRAZOLE 20 MG CAPSULE PO SCH (10:06)
[2020-09-26] MEDS: OLANZapine 10 MG RAPDIS TABLET PO SCH ×2 (10:06→16:13)
[2020-09-26] MEDS: THIAMINE 100 MG TABLET PO SCH ×2 (10:06→16:13)
[2020-09-26] MEDS: GABAPENTIN 100 MG CAPSULE PO SCH ×2 (10:06→16:13)
[2020-09-26] MEDS: FOLIC ACID 1 MG TABLET PO SCH ×2 (10:06→16:13)
[2020-09-26] MEDS: BACITRACIN 28 GM OINTMENT TP SCH ×2 (10:07→17:06)
[2020-09-26 10:35] LABS: BASOPHILS % (AUTO) 0.8 % (0.0-2.0); EOSINOPHILS % (AUTO) 2.9 % (1.0-6.0); HEMOGLOBIN 13.9 g/dL (13.5-17.5); LYMPHOCYTES # (AUTO) 1.9 K/uL (1.0-4.8); LYMPHOCYTES % (AUTO) 22.3 % (22.0-44.0); MEAN CORPUSCULAR HGB CONC 33.9 G/dL (31.0-37.0); MEAN CORPUSCULAR VOLUME 103 fL (80-100); MONOCYTES # (AUTO) 0.8 K/uL (0.1-1.0); MONOCYTES % (AUTO) 9.6 % (2.0-9.0); NEUTROPHILS # (AUTO) 5.6 K/uL (1.8-7.7); NEUTROPHILS % (AUTO) 64.4 % (40.0-70.0); PLATELET COUNT (AUTO) 327 K/uL (150-450); RED BLOOD CELL COUNT(AUTO) 3.97 MIL/uL (4.50-5.90); RED CELL DISTRIBUTION WIDTH 13.9 % (11.5-14.5)
[2020-09-26 10:48] LABS: ANION GAP 7 mmol/L (8-16); CALCIUM, TOTAL 9.2 mg/dL (8.8-10.5); CARBON DIOXIDE 30 mmol/L (22-29); CHLORIDE 106 mmol/L (98-107); CREATININE 0.91 mg/dL (0.60-1.30); GLOMERULAR FILTR. RATE CALC > 60 mL/min (>60); GLUCOSE,RANDOM 98 mg/dL (70-110); POTASSIUM 4.5 mmol/L (3.5-5.1); SODIUM SERUM 143 mmol/L (136-145); UREA NITROGEN, BLOOD 22 mg/dL (7-18)
[2020-09-26 16:06] VITALS: BP 121/82
[2020-09-27] MEDS: LORazepam 2 MG TABLET PO PRN (00:45)
[2020-09-27] MEDS: ZOLPIDEM TARTRATE 10 MG TABLET PO PRN (00:45)
[2020-09-27] MEDS: FERROUS SULFATE 325 MG EC TABLET PO SCH ×2 (07:14→17:07)
[2020-09-27] MEDS: GABAPENTIN 100 MG CAPSULE PO SCH ×2 (08:21→17:06)
[2020-09-27] MEDS: OMEPRAZOLE 20 MG CAPSULE PO SCH (08:21)
[2020-09-27] MEDS: MULTIVITAMINS WITH MINERALS, THERAPEUTIC TABLET PO SCH (08:21)
[2020-09-27] MEDS: OLANZapine 10 MG RAPDIS TABLET PO SCH ×2 (08:21→17:07)
[2020-09-27] MEDS: FOLIC ACID 1 MG TABLET PO SCH ×2 (08:21→17:06)
[2020-09-27] MEDS: HALOPERIDOL 5 MG TABLET PO PRN (08:21)
[2020-09-27] MEDS: THIAMINE 100 MG TABLET PO SCH ×2 (08:21→17:07)
[2020-09-27 08:25] VITALS: BP 147/85
[2020-09-27] MEDS: BACITRACIN 28 GM OINTMENT TP SCH ×2 (08:28→17:47)
[2020-09-27 16:14] VITALS: BP 132/74
[2020-09-27 20:05] VITALS: BP 127/81
[2020-09-28] MEDS: LORazepam 2 MG TABLET PO PRN ×2 (04:49→09:44)
[2020-09-28] MEDS: HALOPERIDOL 5 MG TABLET PO PRN ×2 (04:49→09:44)
[2020-09-28] MEDS: FERROUS SULFATE 325 MG EC TABLET PO SCH ×2 (07:10→16:16)
[2020-09-28 08:02] VITALS: BP 138/82
[2020-09-28] MEDS: THIAMINE 100 MG TABLET PO SCH ×2 (09:42→16:16)
[2020-09-28] MEDS: FOLIC ACID 1 MG TABLET PO SCH ×2 (09:42→16:17)
[2020-09-28] MEDS: OMEPRAZOLE 20 MG CAPSULE PO SCH (09:42)
[2020-09-28] MEDS: MULTIVITAMINS WITH MINERALS, THERAPEUTIC TABLET PO SCH (09:42)
[2020-09-28] MEDS: OLANZapine 10 MG RAPDIS TABLET PO SCH ×2 (09:42→16:16)
[2020-09-28] MEDS: GABAPENTIN 100 MG CAPSULE PO SCH ×2 (09:42→16:16)
[2020-09-28] MEDS: BACITRACIN 28 GM OINTMENT TP SCH ×2 (10:00→16:22)
[2020-09-28 12:49] LABS: COVID AG,FIA SOURCE NASOPHARYNGEAL
[2020-09-28 16:22] VITALS: BP 105/80
[2020-09-28] MEDS: ZOLPIDEM TARTRATE 10 MG TABLET PO PRN (22:51)
[2020-09-29] MEDS: FERROUS SULFATE 325 MG EC TABLET PO SCH ×2 (06:48→16:33)
[2020-09-29 08:16] VITALS: BP 143/90
[2020-09-29] MEDS: MULTIVITAMINS WITH MINERALS, THERAPEUTIC TABLET PO SCH (08:21)
[2020-09-29] MEDS: THIAMINE 100 MG TABLET PO SCH ×2 (08:21→16:33)
[2020-09-29] MEDS: OLANZapine 10 MG RAPDIS TABLET PO SCH ×2 (08:21→16:33)
[2020-09-29] MEDS: OMEPRAZOLE 20 MG CAPSULE PO SCH (08:21)
[2020-09-29] MEDS: FOLIC ACID 1 MG TABLET PO SCH ×2 (08:21→16:33)
[2020-09-29] MEDS: GABAPENTIN 100 MG CAPSULE PO SCH ×2 (08:21→16:33)
[2020-09-29] MEDS: LORazepam 2 MG TABLET PO PRN ×2 (08:21→17:20)
[2020-09-29] MEDS: HALOPERIDOL 5 MG TABLET PO PRN ×2 (08:21→17:20)
[2020-09-29] MEDS: BACITRACIN 28 GM OINTMENT TP SCH ×2 (09:00→16:33)
[2020-09-29 16:24] VITALS: BP 148/74
[2020-09-29 17:42] LABS: APPEARANCE,URINE CLEAR (CLEAR); BILIRUBIN,URINE NEGATIVE (NEGATIVE); GLUCOSE, URINE (UA) NEGATIVE (NEGATIVE); KETONES,URINE NEGATIVE (NEGATIVE); LEUKOCYTE ESTERASE ,URINE NEGATIVE (NEGATIVE); NITRATE,URINE NEGATIVE (NEGATIVE); OCCULT BLOOD,URINE NEGATIVE (NEGATIVE); PROTEIN,URINE NEGATIVE (NEGATIVE); UROBILINOGEN,URINE 0.2 mg/dL (<=1.0)
[2020-09-29] MEDS: ZOLPIDEM TARTRATE 10 MG TABLET PO PRN (20:40)
[2020-09-30] MEDS: FERROUS SULFATE 325 MG EC TABLET PO SCH ×2 (06:44→17:42)
[2020-09-30] MEDS: LORazepam 2 MG TABLET PO PRN (08:17)
[2020-09-30] MEDS: OLANZapine 10 MG RAPDIS TABLET PO SCH ×2 (08:17→16:21)
[2020-09-30] MEDS: THIAMINE 100 MG TABLET PO SCH ×2 (08:17→16:21)
[2020-09-30] MEDS: GABAPENTIN 100 MG CAPSULE PO SCH ×2 (08:17→16:21)
[2020-09-30] MEDS: HALOPERIDOL 5 MG TABLET PO PRN (08:17)
[2020-09-30] MEDS: OMEPRAZOLE 20 MG CAPSULE PO SCH (08:17)
[2020-09-30] MEDS: MULTIVITAMINS WITH MINERALS, THERAPEUTIC TABLET PO SCH (08:17)
[2020-09-30] MEDS: FOLIC ACID 1 MG TABLET PO SCH ×2 (08:17→16:21)
[2020-09-30] MEDS: BACITRACIN 28 GM OINTMENT TP SCH ×2 (08:22→16:22)
[2020-09-30 08:30] VITALS: BP 152/90
[2020-09-30 16:04] VITALS: BP 150/105
[2020-10-01] MEDS: FERROUS SULFATE 325 MG EC TABLET PO SCH ×2 (06:23→16:33)
[2020-10-01] MEDS: OLANZapine 5 MG RAPDIS TABLET PO SCH ×2 (08:29→16:23)
[2020-10-01] MEDS: HALOPERIDOL 5 MG TABLET PO PRN ×2 (08:29→19:17)
[2020-10-01] MEDS: FOLIC ACID 1 MG TABLET PO SCH ×2 (08:29→16:23)
[2020-10-01] MEDS: THIAMINE 100 MG TABLET PO SCH ×2 (08:29→16:23)
[2020-10-01] MEDS: OMEPRAZOLE 20 MG CAPSULE PO SCH (08:29)
[2020-10-01] MEDS: GABAPENTIN 100 MG CAPSULE PO SCH ×2 (08:29→16:23)
[2020-10-01] MEDS: MULTIVITAMINS WITH MINERALS, THERAPEUTIC TABLET PO SCH (08:29)
[2020-10-01] MEDS: LORazepam 2 MG TABLET PO PRN ×2 (08:29→19:17)
[2020-10-01 08:45] VITALS: BP 153/91
[2020-10-01] MEDS: BACITRACIN 28 GM OINTMENT TP SCH ×2 (09:00→16:23)
[2020-10-01 16:26] VITALS: BP 146/85
[2020-10-02] MEDS: FERROUS SULFATE 325 MG EC TABLET PO SCH ×2 (06:55→16:35)
[2020-10-02 08:24] VITALS: BP 150/80
[2020-10-02] MEDS: MULTIVITAMINS WITH MINERALS, THERAPEUTIC TABLET PO SCH (08:31)
[2020-10-02] MEDS: GABAPENTIN 100 MG CAPSULE PO SCH ×2 (08:31→16:25)
[2020-10-02] MEDS: FOLIC ACID 1 MG TABLET PO SCH ×2 (08:31→16:25)
[2020-10-02] MEDS: OLANZapine 5 MG RAPDIS TABLET PO SCH ×2 (08:32→16:27)
[2020-10-02] MEDS: OMEPRAZOLE 20 MG CAPSULE PO SCH (08:32)
[2020-10-02] MEDS: THIAMINE 100 MG TABLET PO SCH ×2 (08:32→16:25)
[2020-10-02] MEDS: HALOPERIDOL 5 MG TABLET PO PRN (11:48)
[2020-10-02] MEDS: LORazepam 2 MG TABLET PO PRN (11:53)
[2020-10-02] MEDS: BACITRACIN 28 GM OINTMENT TP SCH ×2 (13:36→16:35)
[2020-10-02 16:05] VITALS: BP 132/86
[2020-10-03] MEDS: FERROUS SULFATE 325 MG EC TABLET PO SCH ×2 (06:32→17:02)
[2020-10-03] MEDS: FOLIC ACID 1 MG TABLET PO SCH ×2 (08:32→17:02)
[2020-10-03] MEDS: HALOPERIDOL 5 MG TABLET PO PRN (08:32)
[2020-10-03] MEDS: THIAMINE 100 MG TABLET PO SCH ×2 (08:32→17:02)
[2020-10-03] MEDS: LORazepam 2 MG TABLET PO PRN (08:32)
[2020-10-03] MEDS: OMEPRAZOLE 20 MG CAPSULE PO SCH (08:32)
[2020-10-03] MEDS: MULTIVITAMINS WITH MINERALS, THERAPEUTIC TABLET PO SCH (08:32)
[2020-10-03] MEDS: GABAPENTIN 100 MG CAPSULE PO SCH ×2 (08:32→17:02)
[2020-10-03] MEDS: OLANZapine 5 MG RAPDIS TABLET PO SCH ×2 (08:32→17:02)
[2020-10-03] MEDS: BACITRACIN 28 GM OINTMENT TP SCH ×2 (12:18→17:01)
[2020-10-03 16:57] VITALS: BP 136/82
[2020-10-04 08:00] VITALS: BP 140/86
[2020-10-04] MEDS: THIAMINE 100 MG TABLET PO SCH ×2 (08:32→17:04)
[2020-10-04] MEDS: OMEPRAZOLE 20 MG CAPSULE PO SCH (08:32)
[2020-10-04] MEDS: GABAPENTIN 100 MG CAPSULE PO SCH ×2 (08:32→17:04)
[2020-10-04] MEDS: FERROUS SULFATE 325 MG EC TABLET PO SCH ×2 (08:32→17:04)
[2020-10-04] MEDS: FOLIC ACID 1 MG TABLET PO SCH ×2 (08:32→17:04)
[2020-10-04] MEDS: MULTIVITAMINS WITH MINERALS, THERAPEUTIC TABLET PO SCH (08:32)
[2020-10-04] MEDS: BACITRACIN 28 GM OINTMENT TP SCH ×2 (08:33→17:04)
[2020-10-04] MEDS: OLANZapine 5 MG RAPDIS TABLET PO SCH ×3 (08:33→21:32)
[2020-10-04 16:11] VITALS: BP 137/80
[2020-10-05] MEDS: FERROUS SULFATE 325 MG EC TABLET PO SCH ×2 (06:33→16:35)
[2020-10-05] MEDS: FOLIC ACID 1 MG TABLET PO SCH ×2 (08:12→16:35)
[2020-10-05] MEDS: MULTIVITAMINS WITH MINERALS, THERAPEUTIC TABLET PO SCH (08:12)
[2020-10-05] MEDS: GABAPENTIN 100 MG CAPSULE PO SCH ×2 (08:12→16:35)
[2020-10-05] MEDS: OMEPRAZOLE 20 MG CAPSULE PO SCH (08:12)
[2020-10-05] MEDS: THIAMINE 100 MG TABLET PO SCH ×2 (08:13→16:35)
[2020-10-05] MEDS: HALOPERIDOL 5 MG TABLET PO PRN ×2 (08:14→13:46)
[2020-10-05] MEDS: BACITRACIN 28 GM OINTMENT TP SCH ×2 (09:00→16:35)
[2020-10-05 09:18] VITALS: BP 127/82
[2020-10-05 16:14] VITALS: BP 117/78
[2020-10-05] MEDS: OLANZapine 5 MG RAPDIS TABLET PO SCH (20:36)
[2020-10-06] MEDS: FERROUS SULFATE 325 MG EC TABLET PO SCH ×2 (06:47→16:37)
[2020-10-06] MEDS: OMEPRAZOLE 20 MG CAPSULE PO SCH (10:04)
[2020-10-06] MEDS: FOLIC ACID 1 MG TABLET PO SCH ×2 (10:04→16:37)
[2020-10-06] MEDS: MULTIVITAMINS WITH MINERALS, THERAPEUTIC TABLET PO SCH (10:05)
[2020-10-06] MEDS: THIAMINE 100 MG TABLET PO SCH ×2 (10:05→16:37)
[2020-10-06] MEDS: GABAPENTIN 100 MG CAPSULE PO SCH ×2 (10:05→16:37)
[2020-10-06] MEDS: BACITRACIN 28 GM OINTMENT TP SCH ×2 (10:05→16:37)
[2020-10-06] MEDS: OLANZapine 5 MG RAPDIS TABLET PO SCH (20:26)
[2020-10-07] MEDS: FERROUS SULFATE 325 MG EC TABLET PO SCH ×2 (06:35→16:55)
[2020-10-07] MEDS: GABAPENTIN 100 MG CAPSULE PO SCH ×2 (08:11→16:49)
[2020-10-07] MEDS: MULTIVITAMINS WITH MINERALS, THERAPEUTIC TABLET PO SCH (08:11)
[2020-10-07] MEDS: FOLIC ACID 1 MG TABLET PO SCH ×2 (08:11→16:50)
[2020-10-07] MEDS: OMEPRAZOLE 20 MG CAPSULE PO SCH (08:11)
[2020-10-07] MEDS: THIAMINE 100 MG TABLET PO SCH ×2 (08:12→16:55)
[2020-10-07 08:43] VITALS: BP 159/99
[2020-10-07] MEDS: BACITRACIN 28 GM OINTMENT TP SCH ×2 (11:07→16:55)
[2020-10-07 16:22] VITALS: BP 143/86
[2020-10-07 18:51] LABS: COVID AG,FIA SOURCE NASAL SWAB
[2020-10-07] MEDS: OLANZapine 5 MG RAPDIS TABLET PO SCH (21:25)
[2020-10-08] MEDS: FERROUS SULFATE 325 MG EC TABLET PO SCH ×2 (07:13→16:48)
[2020-10-08 08:00] VITALS: BP 161/99
[2020-10-08] MEDS: HALOPERIDOL 5 MG TABLET PO PRN ×2 (08:18→16:48)
[2020-10-08] MEDS: FOLIC ACID 1 MG TABLET PO SCH ×2 (08:18→16:47)
[2020-10-08] MEDS: GABAPENTIN 100 MG CAPSULE PO SCH ×2 (08:18→16:47)
[2020-10-08] MEDS: MULTIVITAMINS WITH MINERALS, THERAPEUTIC TABLET PO SCH (08:18)
[2020-10-08] MEDS: THIAMINE 100 MG TABLET PO SCH ×2 (08:19→16:47)
[2020-10-08] MEDS: OMEPRAZOLE 20 MG CAPSULE PO SCH (08:19)
[2020-10-08] MEDS: BACITRACIN 28 GM OINTMENT TP SCH ×2 (08:20→16:48)
[2020-10-08] MEDS: OLANZapine 5 MG RAPDIS TABLET PO SCH ×2 (12:59→16:47)
[2020-10-08 16:34] VITALS: BP 151/90
[2020-10-09] MEDS: FERROUS SULFATE 325 MG EC TABLET PO SCH (07:02)
[2020-10-09 08:00] VITALS: BP 168/91
[2020-10-09] MEDS: OLANZapine 5 MG RAPDIS TABLET PO SCH (09:31)
[2020-10-09] MEDS: THIAMINE 100 MG TABLET PO SCH (09:31)
[2020-10-09] MEDS: GABAPENTIN 100 MG CAPSULE PO SCH (09:31)
[2020-10-09] MEDS: OMEPRAZOLE 20 MG CAPSULE PO SCH (09:31)
[2020-10-09] MEDS: MULTIVITAMINS WITH MINERALS, THERAPEUTIC TABLET PO SCH (09:31)
[2020-10-09] MEDS: FOLIC ACID 1 MG TABLET PO SCH (09:31)
[2020-10-09] MEDS: HALOPERIDOL 5 MG TABLET PO PRN (09:31)
[2020-10-09] MEDS: BACITRACIN 28 GM OINTMENT TP SCH (09:31)
[2020-10-09] MEDS ORDERED: GABA-1216 PO (11:51)
[2020-10-09] MEDS ORDERED: OLAN10TA6 PO (11:51)
[2020-10-09] MEDS ORDERED: FERR-89 PO (11:53)
[2020-10-09] MEDS ORDERED: MULT-1239 PO (11:54)
[2020-10-09] MEDS ORDERED: FOLI-130 PO (11:54)
[2020-10-09] MEDS ORDERED: THIA100T80 PO (11:55)
== END 2020-10-09 14:50 | disposition home or self-care (01) | DRG 750 ==
LOC: EMS 11:39 → B3A 18:18 → 3EC 09-11 19:52
PROVIDERS: ADMIT Psychiatry & Neurology Psychiatry; ATTEND Psychiatry & Neurology Psychiatry
DX: F20.0 Paranoid schizophrenia (principal); N17.9 Acute kidney failure, unspecified; E66.9 Obesity, unspecified; F15.90 Other stimulant use, unspecified, uncomplicated; F17.210 Nicotine dependence, cigarettes, uncomplicated; Z20.822 Contact with and (suspected) exposure to COVID-19; F10.10 Alcohol abuse, uncomplicated; Z59.0 Homelessness
CPT/HCPCS: 87426; 99291; G0480; J1200; J1630; J2060

== ENCOUNTER 2020-08-26 15:58 | Emergency (ER) | payer MEDICAID, OTHER ==
[~2020-08-26] VITALS: Ht 180.3 cm; Wt 86.4 kg
[2020-08-26] MEDS ORDERED: LORazepam 2 MG/ML VIAL IM ONE ×2 (16:30→17:30)
[2020-08-26] MEDS ORDERED: DiphenhydrAMINE HCL 50 MG/ML VIAL IM ONE (16:30)
[2020-08-26] MEDS ORDERED: HALOPERIDOL LACTATE 5 MG/ML VIAL IM ONE ×2 (16:30→17:30)
[2020-08-26 17:18] LABS: AMPHET/METH SCREEN,URINE NEGATIVE (NEGATIVE); BARBITURATE SCREEN, URINE NEGATIVE (NEGATIVE); BENZODIAZEPINES SCREEN,URINE NEGATIVE (NEGATIVE); CANNABINOID SCREEN,URINE NEGATIVE (NEGATIVE); COCAINE SCREEN,URINE NEGATIVE (NEGATIVE); METHADONE SCREEN, URINE NEGATIVE (NEGATIVE); OPIATE SCREEN,URINE NEGATIVE (NEGATIVE)
[2020-08-26 17:19] LABS: APPEARANCE,URINE CLEAR (CLEAR); BILIRUBIN,URINE NEGATIVE (NEGATIVE); GLUCOSE, URINE (UA) NEGATIVE (NEGATIVE); KETONES,URINE NEGATIVE (NEGATIVE); LEUKOCYTE ESTERASE ,URINE NEGATIVE (NEGATIVE); NITRATE,URINE NEGATIVE (NEGATIVE); OCCULT BLOOD,URINE NEGATIVE (NEGATIVE); PROTEIN,URINE NEGATIVE (NEGATIVE); UROBILINOGEN,URINE 0.2 mg/dL (<=1.0)
[2020-08-26 17:20] LABS: PHENCYCLIDINE SCREEN,URINE NEGATIVE (NEGATIVE)
[2020-08-26 17:44] LABS: BASOPHILS % (AUTO) 1.2 % (0.0-2.0); EOSINOPHILS % (AUTO) 2.8 % (1.0-6.0); HEMATOCRIT 39.3 % (41-53); HEMOGLOBIN 13.4 g/dL (13.5-17.5); LYMPHOCYTES # (AUTO) 2.6 K/uL (1.0-4.8); LYMPHOCYTES % (AUTO) 26.5 % (22.0-44.0); MEAN CORPUSCULAR HGB CONC 34.1 G/dL (31.0-37.0); MEAN CORPUSCULAR VOLUME 103 fL (80-100); MONOCYTES # (AUTO) 1.4 K/uL (0.1-1.0); MONOCYTES % (AUTO) 13.9 % (2.0-9.0); NEUTROPHILS # (AUTO) 5.5 K/uL (1.8-7.7); NEUTROPHILS % (AUTO) 55.6 % (40.0-70.0); PLATELET COUNT (AUTO) 303 K/uL (150-450); RED BLOOD CELL COUNT(AUTO) 3.82 MIL/uL (4.50-5.90); RED CELL DISTRIBUTION WIDTH 13.3 % (11.5-14.5)
[2020-08-26 18:09] LABS: AMMONIA 18 umol/L (11-32)
[2020-08-26 18:10] LABS: ANION GAP 13 mmol/L (8-16); CALCIUM, TOTAL 9.8 mg/dL (8.8-10.5); CARBON DIOXIDE 23 mmol/L (22-29); CHLORIDE 107 mmol/L (98-107); CREATININE 1.22 mg/dL (0.60-1.30); GLOMERULAR FILTR. RATE CALC > 60 mL/min (>60); GLUCOSE,RANDOM 91 mg/dL (70-110); POTASSIUM 4.1 mmol/L (3.5-5.1); SODIUM SERUM 143 mmol/L (136-145); TROPONIN I < 0.02 ng/mL (0.00-0.05); UREA NITROGEN, BLOOD 35 mg/dL (7-18)
[2020-08-26 18:34] LABS: ALANINE AMINOTRANSFERASE 35 U/L (12-78); ALBUMIN 4.1 g/dL (3.4-5.0); ALKALINE PHOSPHATASE 137 U/L (46-116); ASPARTATE AMINOTRANSFERASE 37 U/L (15-37); BILIRUBIN,TOTAL 0.7 mg/dL (0.1-1.0); CREATINE KINASE, TOTAL ONLY 552 U/L (39-308); TOTAL PROTEIN, SERUM 7.6 g/dL (6.4-8.2)
[2020-08-26 19:40] VITALS: BP 120/65
== END 2020-08-26 20:37 | disposition admitted as inpatient to this hospital (09) ==
LOC: EMS 15:58
DX: F29 Unspecified psychosis not due to a substance or known physiological condition (principal)
CPT/HCPCS: 36415; 70450; 71045; 80053; 80307; 81003; 82140; 82550; 84484; 85025; 93005; 96372; 99291; J1200; J1630; J2060

== ENCOUNTER 2021-01-21 10:55 | Inpatient (IN) | payer MEDICAID ==
[~2021-01-21] VITALS: Ht 177.8 cm; Wt 79.1 kg
[~2021-01-21 10:55] MED LIST changes: +ACET-2247 PO; +APIX5TAB PO; +AUD NEB; +BENZ1TAB10 PO; +BISA10SU11 PR; +CLOZ100T32 PO; +FERR-89 PO; +FOLI-130 PO; +GABA-1216 PO; +HYDR-4396 PO; +MOM30 PO; +MULT-1239 PO; +OLAN10TA26 PO; +PRED20 PO; -RISP3TAB63 PO; +THIA100T80 PO; -TRIH2TAB3 PO
[2021-01-21] MEDS ORDERED: ZOLPIDEM TARTRATE 10 MG TABLET PO PRN (17:45)
[2021-01-21] MEDS ORDERED: LORazepam 2 MG TABLET PO PRN (17:45)
[2021-01-21] MEDS ORDERED: HALOPERIDOL 5 MG TABLET PO PRN (17:45)
[2021-01-21 18:15] VITALS: BP 109/74
[2021-01-21] MEDS: ALBUTEROL SULFATE 2.5 MG/0.5 ML NEB SOLUTION NEB SCH (19:00)
[2021-01-21] MEDS: IPRATROPIUM BROMIDE 0.5 MG/2.5 ML NEB SOLUTION NEB SCH (19:00)
[2021-01-21] MEDS ORDERED: DOCUSATE SODIUM 100 MG CAPSULE PO SCH (19:40)
[2021-01-21] MEDS ORDERED: FAMOTIDINE 20 MG TABLET PO SCH (19:40)
[2021-01-21] MEDS ORDERED: APIXABAN 5 MG TABLET PO SCH (19:40)
[2021-01-21] MEDS: BENZTROPINE MESYLATE 1 MG TABLET PO SCH (21:58)
[2021-01-21] MEDS: CloZAPine 100 MG TABLET PO SCH (21:58)
[2021-01-21] MEDS ORDERED: IPRATROPIUM BROMIDE 0.5 MG/2.5 ML NEB SOLUTION NEB SCH (23:00)
[2021-01-21] MEDS ORDERED: ALBUTEROL SULFATE 2.5 MG/0.5 ML NEB SOLUTION NEB SCH (23:00)
[2021-01-22] MEDS: ALBUTEROL SULFATE 2.5 MG/0.5 ML NEB SOLUTION NEB SCH ×3 (01:55→07:00)
[2021-01-22] MEDS: IPRATROPIUM BROMIDE 0.5 MG/2.5 ML NEB SOLUTION NEB SCH ×3 (01:55→07:00)
[2021-01-22] MEDS ORDERED: LOPERAMIDE HCL 2 MG CAPSULE PO PRN (08:00)
[2021-01-22] MEDS ORDERED: MAG HYDROX/AL HYDROX/SIMETH ES 30 ML SUSPENSION UDCUP PO PRN (08:00)
[2021-01-22] MEDS ORDERED: PETROLATUM,WHITE 28 GM JELLY TP PRN (08:00)
[2021-01-22] MEDS ORDERED: DOCUSATE SODIUM 100 MG CAPSULE PO PRN (08:00)
[2021-01-22] MEDS ORDERED: NICOTINE 14 MG/24 HOUR PATCH TD PRN (08:00)
[2021-01-22] MEDS ORDERED: CloNIDine HCL 0.1 MG TABLET PO PRN (08:00)
[2021-01-22] MEDS ORDERED: GuaiFENesin/D-METHORPHAN [SUGAR-FREE] 200-20MG/10 ML SYRUP UDCUP PO PRN (08:00)
[2021-01-22] MEDS ORDERED: ACETAMINOPHEN 325 MG TABLET PO PRN (08:00)
[2021-01-22] MEDS ORDERED: ALBUTEROL SULFATE HFA 90 MCG/PUFF 8 GM INHALER IH PRN (08:00)
[2021-01-22] MEDS ORDERED: MAGNESIUM HYDROXIDE SUSPENSION 30 ML UDCUP PO PRN (08:00)
[2021-01-22 08:22] VITALS: BP 108/66
[2021-01-22 08:56] LABS: BASOPHILS % (AUTO) 0.5 % (0.0-2.0); EOSINOPHILS % (AUTO) 1.3 % (1.0-6.0); HEMATOCRIT 36.5 % (41-53); HEMOGLOBIN 12.2 g/dL (13.5-17.5); LYMPHOCYTES # (AUTO) 1.2 K/uL (1.0-4.8); LYMPHOCYTES % (AUTO) 9.3 % (22.0-44.0); MEAN CORPUSCULAR HEMOGLOBIN 36.1 pg (26.0-34.0); MEAN CORPUSCULAR HGB CONC 33.4 G/dL (31.0-37.0); MEAN CORPUSCULAR VOLUME 108 fL (80-100); MONOCYTES # (AUTO) 0.7 K/uL (0.1-1.0); MONOCYTES % (AUTO) 5.5 % (2.0-9.0); NEUTROPHILS # (AUTO) 10.9 K/uL (1.8-7.7); NEUTROPHILS % (AUTO) 83.4 % (40.0-70.0); PLATELET COUNT (AUTO) 219 K/uL (150-450); RED BLOOD CELL COUNT(AUTO) 3.38 MIL/uL (4.50-5.90)
[2021-01-22] MEDS: BENZTROPINE MESYLATE 1 MG TABLET PO SCH ×2 (09:00→17:08)
[2021-01-22] MEDS: APIXABAN 5 MG TABLET PO SCH ×2 (09:00→17:09)
[2021-01-22] MEDS: BISACODYL 10 MG RECTAL RECTAL SUPPOSITORY PR SCH (09:00)
[2021-01-22] MEDS: THIAMINE 100 MG TABLET PO SCH ×2 (09:00→17:08)
[2021-01-22] MEDS: CloZAPine 25 MG TABLET PO SCH ×2 (09:00→17:09)
[2021-01-22] MEDS: FAMOTIDINE 20 MG TABLET PO SCH ×2 (09:00→17:08)
[2021-01-22] MEDS: OMEPRAZOLE 20 MG CAPSULE PO SCH (09:00)
[2021-01-22] MEDS: PredniSONE 20 MG TABLET PO SCH (09:00)
[2021-01-22] MEDS: DOCUSATE SODIUM 100 MG CAPSULE PO SCH ×2 (09:00→17:10)
[2021-01-22] MEDS: MULTIVITAMINS WITH MINERALS, THERAPEUTIC TABLET PO SCH ×2 (09:00→17:08)
[2021-01-22] MEDS ORDERED: APIXABAN 5 MG TABLET PO SCH (09:00)
[2021-01-22 09:17] LABS: CHOL/HDL RATIO 5.2 (4.2-7.3); FREE T4 (FREE THYROXINE) 1.25 ng/dL (0.76-1.46); THYROID STIMULATING HORMONE 1.34 uIU/mL (0.36-3.74)
[2021-01-22] MEDS ORDERED: ALBUTEROL SULFATE 2.5 MG/0.5 ML NEB SOLUTION NEB PRN (13:15)
[2021-01-22] MEDS ORDERED: IPRATROPIUM BROMIDE 0.5 MG/2.5 ML NEB SOLUTION NEB PRN (13:15)
[2021-01-22 16:13] VITALS: BP 123/77
[2021-01-22] MEDS: FERROUS SULFATE 325 MG EC TABLET PO SCH (17:08)
[2021-01-22] MEDS: CloZAPine 100 MG TABLET PO SCH (20:43)
[2021-01-23] MEDS: FERROUS SULFATE 325 MG EC TABLET PO SCH ×2 (06:46→16:30)
[2021-01-23 06:52] LABS: BASOPHILS % (AUTO) 0.5 % (0.0-2.0); EOSINOPHILS % (AUTO) 0.8 % (1.0-6.0); HEMATOCRIT 34.9 % (41-53); LYMPHOCYTES # (AUTO) 0.8 K/uL (1.0-4.8); LYMPHOCYTES % (AUTO) 7.4 % (22.0-44.0); MEAN CORPUSCULAR HGB CONC 34.4 G/dL (31.0-37.0); MEAN CORPUSCULAR VOLUME 108 fL (80-100); MONOCYTES # (AUTO) 0.5 K/uL (0.1-1.0); MONOCYTES % (AUTO) 4.4 % (2.0-9.0); NEUTROPHILS # (AUTO) 9.6 K/uL (1.8-7.7); NEUTROPHILS % (AUTO) 86.9 % (40.0-70.0); PLATELET COUNT (AUTO) 203 K/uL (150-450); RED BLOOD CELL COUNT(AUTO) 3.25 MIL/uL (4.50-5.90); RED CELL DISTRIBUTION WIDTH 19.1 % (11.5-14.5)
[2021-01-23] MEDS: PredniSONE 20 MG TABLET PO SCH (09:03)
[2021-01-23] MEDS: BENZTROPINE MESYLATE 1 MG TABLET PO SCH ×2 (09:03→16:30)
[2021-01-23] MEDS: FAMOTIDINE 20 MG TABLET PO SCH ×2 (09:03→16:30)
[2021-01-23] MEDS: OMEPRAZOLE 20 MG CAPSULE PO SCH (09:03)
[2021-01-23] MEDS: CloZAPine 25 MG TABLET PO SCH ×2 (09:03→16:30)
[2021-01-23] MEDS: MULTIVITAMINS WITH MINERALS, THERAPEUTIC TABLET PO SCH ×2 (09:03→16:30)
[2021-01-23] MEDS: DOCUSATE SODIUM 100 MG CAPSULE PO SCH ×2 (09:03→16:30)
[2021-01-23] MEDS: THIAMINE 100 MG TABLET PO SCH ×2 (09:03→16:30)
[2021-01-23] MEDS: APIXABAN 5 MG TABLET PO SCH ×2 (09:17→16:30)
[2021-01-23 10:33] VITALS: BP 111/63
[2021-01-23] MEDS: BISACODYL 10 MG RECTAL RECTAL SUPPOSITORY PR SCH (11:30)
[2021-01-23 16:02] VITALS: BP 121/77
[2021-01-23] MEDS: CloZAPine 100 MG TABLET PO SCH (21:06)
== END 2021-01-23 23:20 | disposition short-term general hospital (02) | DRG 750 ==
LOC: 3EI 18:15
PROVIDERS: ADMIT Psychiatry & Neurology Child & Adolescent Psychiatry; ATTEND Psychiatry & Neurology Child & Adolescent Psychiatry
DX: F20.9 Schizophrenia, unspecified (principal); E44.0 Moderate protein-calorie malnutrition; I82.401 Acute embolism and thrombosis of unspecified deep veins of right lower extremity; F41.9 Anxiety disorder, unspecified; J44.9 Chronic obstructive pulmonary disease, unspecified; I10 Essential (primary) hypertension; Z79.01 Long term (current) use of anticoagulants; Z68.25 Body mass index [BMI] 25.0-25.9, adult
CPT/HCPCS: 80061; 84439; 84443; 85025; 87081; 94640